=== PATIENT | male | born 1995 | race Caucasian/White ===

== ENCOUNTER 2022-02-02 07:04 | Emergency (ER) | payer MEDICAID, SELFPAY ==
[2022-02-02 07:19] VITALS: BP 155/102; PULSE 53; RESP 16; TEMP 36.8; O2SAT 98
--- NOTE | 2022-02-02 07:39 | ED.GENADULT ---
HPI - General Adult General Chief complaint: Back Pain/Injury Stated complaint: BACK PAIN History of Present Illness HPI narrative: This is a 26-year-old male presenting ED with chief complaint of back pain. Patient was helping tear down a shot yesterday and did not have any issues. However at 10:00 p.m. last night he started to have a bandlike pain across his lower back that he describes as sharp/aching pain that is nonradiating, 6/10 intensity, and worse with movement. Lesions had no issue with urinating or bowel movements since injury. He has no weakness of his lower extremities. He denies saddle anesthesia. He denies history of IV drug use, fevers, history of cancer or trauma. Related Data Allergies Allergy/AdvReac Type Severity Reaction Status Date / Time No Known Allergies Allergy Verified 02/02/22 07:24 Review of Systems Constitutional: Constitutional: Denies fever(s) Eyes: Eyes: Denies change in vision ENT: Denies dysphagia Cardiovascular: Cardiovascular: Denies chest pain Respiratory: Respiratory: Denies chest congestion Gastrointestinal: Gastrointestinal: Denies abdominal pain Genitourinary: Genitourinary: Denies hematuria Musculoskeletal: Musculoskeletal: Denies back pain Integumentary/Breasts: Skin/Breast: Denies breast pain Neurologic: Denies confusion Psychiatric: Psychiatric: Denies anxiety Endocrine: Endocrine: Denies excessive sweating Hematologic/Lymphatic: Hematologic/Lymphatic: Denies easy bleeding Allergic/Immunologic: Allergic/Immunologic: Denies lip swelling PMFSH Past Medical History Medical History Hip fx Exam Const: General: healthy appearing Nutritional Appearance: well nourished Orientation/consciousness: patient oriented x3 Limitations: no limitations HENMT: Head: normal to inspection Eyes: Conjunctivae: conjunctivae normal Pupils: Equal, round and reactive pupils present Neck: Neck: normal visual inspection Chest: Chest palpation & inspection: normal inspection of the chest Resp: Effort & Inspection: normal respiratory effort Cardio: Rate: regular rate GI: GI Palp: Yes Soft to palpation, No Tenderness to palpation present (GI) and No Guarding due to palpation present (GI) : General: Yes bladder normal to palpation Back/Spine/Pelvis: Back: no CVA tenderness Thoracic/Lumbar Spine: thoracic and lumbar spine normal to inspection, straight leg raise negative bilaterally, No thoracic spinal tenderness and No lumbar spinal tenderness Skin: General skin exam: normal color Neuro: General: patient oriented x3, moves all extremities and CN's II-XI intact bilaterally Other: Patient is able to ambulate on his heels and his toes. Extrem: General: normal to inspection Psych: Mental Status: mental status grossly normal Course Vital Signs Vital signs: Vital Signs Temperature 98.3 F 02/02/22 07:19 Pulse Rate 53 L 02/02/22 07:19 Respiratory Rate 16 02/02/22 07:19 Blood Pressure 155/102 H 02/02/22 07:19 Pulse Oximetry 98 02/02/22 07:19 Oxygen Delivery Room Air 02/02/22 07:19 Temperature 98.3 F 02/02/22 07:19 Pulse Rate 53 L 02/02/22 07:19 Respiratory Rate 16 02/02/22 07:19 Blood Pressure 155/102 H 02/02/22 07:19 Pulse Oximetry 98 02/02/22 07:19 Oxygen Delivery Room Air 02/02/22 07:19 Medical Decision Making [facility] Narrative Medical decision making narrative: This is a 26-year-old male presents the ED with lower back pain. He has no concerning medical history or physical exam findings. He says he has had poor Motrin reaction to motrin in the past. He will be treated with Naproxen w/ pepcid, Oxy, and cyclobenzaprine. Upon re-evaluation the patient's pain is improved. Patient will be discharged. Differential Diagnosis Differential Diagnosis: muscle strain, herniated disc, lumbar radiculopathy Vital Signs Vital Signs: Vital Signs T
[2022-02-02] MEDS: FAMOTIDINE 20 MG TABLET PO (07:58)
[2022-02-02] MEDS: CYCLOBENZAPRINE HCL 10 MG TABLET PO (07:58)
[2022-02-02] MEDS: oxyCODONE HCL (*CRX) 5 MG TAB IR PO (07:58)
[2022-02-02] MEDS: NAPROXEN 250 MG TABLET 500 MG PO (07:59)
--- NOTE | 2022-02-02 08:13 | PC.NURSE ---
patient ambulatory to bathroom at this time.
[2022-02-02 08:31] VITALS: BP 157/86; PULSE 107; RESP 16; TEMP 36.4; O2SAT 100
== END 2022-02-02 08:33 | disposition home or self-care (01) ==
PROVIDERS: Emergency Provider Emergency Medicine
DX: S39.012A Strain of muscle, fascia and tendon of lower back, initial encounter (principal)
CPT/HCPCS: 99283; A9270

== ENCOUNTER 2025-04-09 22:04 | Emergency (ER) | payer OTHER, SELFPAY ==
--- NOTE | ~2025-04-09 | XR_ITS ---
EXAMINATION: XR knee RT 3V DATE: 04/09/2025 22:26 INDICATION: Anterior right knee pain TECHNIQUE: Anteroposterior, oblique and crosstable lateral views of the right knee were obtained COMPARISON: None. FINDINGS: Alignment is normal. No fracture. No joint effusion/layering lipohemarthrosis. Soft tissues are unremarkable. IMPRESSION: 1. Negative right knee radiographs. Reviewed, dictated and finalized at location A.
[2025-04-09 22:04] VITALS: BP 164/101; PULSE 127; RESP 22; TEMP 36.5; O2SAT 97
--- NOTE | 2025-04-09 22:23 | ED_ITS ---
HPI - Extremity Injury (Lower) General Chief Complaint: Extremity Injury, Lower Stated Complaint: knee pain Time Seen by Provider: 04/09/25 22:11 History of Present Illness HPI Narrative: Pt was doing wrestling move with kids a week ago and landed on right knee on ground and had pain in knee cap which resolved. Today he was doing push up on floor and child jumped on back and when he was getting up he put pressure on his right knee cap and felt pop and tingling in knee and a brief pain which resolved. Pt has no pain now but is afraid to move knee. Related Data Home Medications ?Medication ?Instructions ?Recorded ?Confirmed ?Last Taken ?Type No Home Medications 04/09/25 04/09/25 U nknown History Allergies Allergy/AdvReac Type Severity Reaction Status Date / Time No Known Allergies Allergy Verified 04/09/25 22:09 Review of Systems Review of Systems: All systems reviewed & are unremarkable except as noted in HPI and below PMFSH Past Medical History Medical History Hip fx Exam Const: General: healthy appearing and no acute distress Nutritional Ember earance: well nourished Orientation/consciousness: patient oriented x3 Limitations: no limitations Skin: General skin exam: normal color Rashes: no rashes Wounds: no wounds Neuro: General: patient oriented x3, moves all extremities and no focal motor deficits Speech: normal speech Extrem: General: normal to inspection and no clubbing, cyanosis or edema Other: no tenderness or deformity noted Psych: Mental Status: mental status grossly normal Affect: normal affect Attitude: cooperative Course Vital Signs Vital signs: Vital Signs Temperature 97.7 F 04/09/25 22:04 Pulse Rate 127 H 04/09/25 22:04 Respiratory Rate 22 H 04/09/25 22:04 Blood Pressure 164/101 H 04/09/25 22:04 Pulse Oximetry 97 04/09/25 22:04 Oxygen Delivery Room Air 04/09/25 22:04 Temperature 97.7 F 04/09/25 22:04 Pulse Rate 127 H 04/09/25 22:04 Respiratory Rate 22 H 04/09/25 22:04 Blood Pressure 164/101 H 04/09/25 22:04 Pulse Oximetry 97 04/09/25 22:04 Oxygen Delivery Room Air 04/09/25 22:04 MDM - Extremity Injury (Lower) MDM Narrative Medical decision making narrative: seems like tendonitis or contusion. will x ray to rule out fx. Imaging Data Attestation: I personally reviewed and interpreted this imaging study as follows: My impression: no fx Radiologist's impression: normal Discharge Plan Discharge Clinical Impression: Contusion of knee, right Patient Disposition: Home Condition: Stable Instructions: Antibiotic Form, Contusion in Adults (ED) Additional Instructions: motrin otc for pain, ice to knee cap. Patient Language: Icelandic Prescriptions: No Action No Home Medications Follow-up/Referrals: Marco A Esposito MD [Primary Care Provider, Internal Medicine]
== END 2025-04-09 22:42 | disposition home or self-care (01) ==
LOC: CHSED 22:37
PROVIDERS: Emergency Provider Emergency Medicine; PCP Internal Medicine
DX: S80.01XA Contusion of right knee, initial encounter (principal); X58.XXXA Exposure to other specified factors, initial encounter; Y93.72 Activity, wrestling
CPT/HCPCS: 73562; 99283